=== PATIENT | female | born 1985 | race Caucasian/White ===

== ENCOUNTER 2017-02-01 10:02 | Emergency (ER) | payer SELFPAY ==
[2017-02-01 13:04] VITALS: BP 144/82
== END 2017-02-01 13:05 | disposition home or self-care (01) ==
LOC: ED 10:02
DX: N83.202 Unspecified ovarian cyst, left side (principal); N83.201 Unspecified ovarian cyst, right side

== ENCOUNTER 2017-04-04 02:57 | Emergency (ER) | payer MEDICAID ==
[2017-04-04 04:34] LABS: BASOPHIL % 0.3 % (0-2); PLATELET COUNT 270 x10^3mcL (130-400); RED CELL DISTRIBUTION WIDTH 13.3 % (11.5-14.5)
[2017-04-04 04:40] LABS: CALCIUM 8.4 mg/dL (8.5-10.1); CARBON DIOXIDE 25.1 mmol/L (21-32); CHLORIDE SERUM 103 mmol/L (98-107); CREATININE SERUM 0.7 mg/dL (0.6-1.0); GFR1 > 60 mL/min; GLUCOSE SERUM 115 mg/dL (74-106); POTASSIUM SERUM 3.9 mmol/L (3.5-5.1); SODIUM SERUM 134 mmol/L (136-145)
[2017-04-04 04:44] LABS: ALBUMIN 3.2 g/dL (3.4-5.0); ALKALINE PHOSPHATASE 50 U/L (46-116); ALT/SGPT 15 U/L (14-59); AMYLASE 43 U/L (25-115); AST/SGOT 14 U/L (15-37); BILIRUBIN TOTAL 0.2 mg/dL (0.20-1.00); LIPASE 110 IU/L (73-393); TOTAL PROTEIN, SERUM 7.8 g/dL (6.4-8.2)
[2017-04-04 05:17] LABS: UA SPECIFIC GRAVITY 1.015 (1.005-1.035); microscopic required? YES; urine erythrocyte TRACE (NEGATIVE)
[2017-04-04 05:49] VITALS: BP 129/78
== END 2017-04-04 03:57 | disposition home or self-care (01) ==
LOC: ED 02:57
PROVIDERS: Emergency Medicine
DX: N39.0 Urinary tract infection, site not specified (principal); N83.201 Unspecified ovarian cyst, right side; Z79.3 Long term (current) use of hormonal contraceptives; Z98.890 Other specified postprocedural states
CPT/HCPCS: 36415; J1170; Q0092; Q0162

== ENCOUNTER 2018-05-08 08:52 | Emergency (ER) | payer OTHER ==
[2018-05-08 08:54] VITALS: Ht 167.6 cm
[2018-05-08 09:32] VITALS: BP 140/62
== END 2018-05-08 09:32 | disposition home or self-care (01) ==
LOC: ED 08:52
DX: L02.412 Cutaneous abscess of left axilla (principal); Z98.890 Other specified postprocedural states

== ENCOUNTER 2018-06-06 08:24 | Emergency (ER) | payer OTHER ==
[2018-06-06 08:37] VITALS: BP 128/62; Ht 167.6 cm
== END 2018-06-06 09:45 | disposition home or self-care (01) ==
LOC: ED 08:24
DX: M67.431 Ganglion, right wrist (principal); Z98.890 Other specified postprocedural states; Z98.86 Personal history of breast implant removal
CPT/HCPCS: Q0092